=== PATIENT | female | born 1970 | race Hispanic/Latino ===

== ENCOUNTER 2025-06-21 18:03 | Emergency (ER) | payer BC, OTHER ==
[~2025-06-21] VITALS: Ht 170.2 cm; Wt 68.0 kg
[~2025-06-21 18:03] MED LIST: ESTR2TAB25 PO; GLIP-300 PO; LISI2.5T13 PO; METF-444 PO
[2025-06-21 18:06] VITALS: TEMP 98.1
[2025-06-21 18:58] LABS: IMMATURE GRANULOCYTE ABSOLUTE 0.14 K/uL (0-1); NUCLEATED RED BLOOD CELLS 0.0 % (0.0-0.19); PLATELET COUNT (AUTO) 310 K/uL (130-400); RED BLOOD CELL COUNT(AUTO) 5.19 MIL/uL (4.00-5.50); RED CELL DISTRIBUTION WIDTH 12.3 % (11.0-15.5); WHITE BLOOD COUNT (AUTO) 10.9 K/uL (4.8-10.8)
[2025-06-21 19:16] LABS: CREATININE 0.5 mg/dL (0.5-1.0); GLOMERULAR FILTR. RATE CALC 112 mL/min (>90); SODIUM SERUM 127 mmol/L (136-145); UREA NITROGEN, BLOOD 16 mg/dL (7-18)
[2025-06-21 19:19] LABS: GLUCOSE,RANDOM 441 mg/dL (70-105)
--- NOTE | 2025-06-21 19:20 | ERN ---
ED Note History of Present Illness Stated Complaint: CHEST PAIN Chief Complaint: Chest Pain Time Seen by MD: 18:06 Time Seen by Midlevel: 18:10 Dictation: 54-year-old female coming in with complaints of chest pain, patient states she has been has a on the left lower aspect radiating to the left back pain. Patient states he feels like a cramp along her upper abdomen. Denies any nausea, vomiting diarrhea today. Allergies: Coded Allergies: No Known Allergies (Unverified Allergy, Unknown, 04/21/17) Home Meds Reported Medications Glipizide (Glipizide ER) 5 Mg Tab.er.24, 5 MG PO DAILYDINNER 04/21/17 Metformin HCl (Metformin HCl) 500 Mg Tablet, 500 MG PO BIDAC 04/21/17 Lisinopril (Lisinopril) 2.5 Mg Tablet, 2.5 MG PO DAILY 04/21/17 Estradiol (Estradiol) 2 Mg Tablet, 2 MG PO DAILY 04/21/17 Past Medical History Past Medical History: Diabetes-Type II Surgical History: Appendectomy, Hysterectomy, Other Surgical History Other: ANKLE SX Review of System Dictation Constitutional: Negative for fever,chills, and weight loss Eyes: Negative for injury, pain,redness, and discharge ENT: Negative for injury,pain or swelling Cardiovascular: Complaining of chest pain Respiratory: Negative for shortness of breath, cough, and wheezing, Abdomen/GI: Negative for abdominal pain, nausea, vomiting, diarrhea, and constipation Back: Negative for injury and pain : Negative for injury, bleeding and discharge MS/Extremity: Negative for injury and deformity Skin: Negative for rash, and discoloration Neuro: Negative for headache, weakness, numbness, tingling, and seizure Psych: Negative for suicide ideation, homicidal ideation, and hallucinations Review of Systems: was completed Initial Vital Sign VS Vital Signs Date Time Temp Pulse Resp B/P (MAP) Pulse Ox O2 Delivery O2 Flow Rate FiO2 06/21/25 18:06 98.1 97 18 149/81 98 Room Air 06/21/25 21:15 0 21 Physical Exam Dictation General: awake, alert, NAD Head/Face: Normocephalic, atraumatic Eyes: PERRL, EOMI, vision at baseline ENT: oral cavity clear, TMs clear, no signs of infection Neck: Trachea midline, supple, no nuchal rigidity Cardiovascular: RRR, normal S1/S2, No MRGs, no JVD Respiratory: CTAB, no respiratory distress, No rales or wheezes Abdomen: Soft, non-tender, non-distended, normal bowel sounds, no guarding or rebound. Skin: Warm, dry, normal turgor, no rash MS/Extremity: Pulses equal, no cyanosis, neurovascular intact, FROM Neuro: COAx4, GCS 15, strength 5/5, CN 2-12 intact, normal cerebellar exam, normal gait, Psych: Normal behavior, mood, and affect normal Results (Laboratory/Radiology) Laboratory/Radiology Laboratory Tests Test 06/21/25 18:50 06/21/25 19:30 06/21/25 19:48 06/21/25 21:13 White Blood Count 10.9 K/uL (4.8-10.8) H Red Blood Count 5.19 MIL/uL (4.00-5.50) Hemoglobin 15.9 g/dL (12.0-16.0) Hematocrit 42.9 % (36-48) Mean Corpuscular Volume 82.7 fL (79-99) Mean Corpuscular Hemoglobin 30.6 pg (27.0-33.0) Mean Corpuscular Hemoglobin Concent 37.1 g/dL (32.0-36.0) H Red Cell Distribution Width 12.3 % (11.0-15.5) Platelet Count 310 K/uL (130-400) Mean Platelet Volume 10.4 fL (7.5-10.5) Immature Granulocyte % (Auto) 1.3 % (0-1) H Neutrophils (%) (Auto) 46.8 % (40.0-77.0) Lymphocytes (%) (Auto) 43.2 % (21.0-51.0) Monocytes (%) (Auto) 6.2 % (3.0-13.0) Eosinophils (%) (Auto) 1.3 % (0.0-8.0) Basophils (%) (Auto) 1.2 % (0.0-5.0) Neutrophils # (Auto) 5.1 K/uL (1.8-7.7) Lymphocytes # (Auto) 4.7 K/uL (1.0-4.8) Monocytes # (Auto) 0.7 K/uL (0.1-1.0) Eosinophils # (Auto) 0.14 K/uL (0.00-0.70) Basophils # (Auto) 0.13 K/uL (0.00-0.20) Absolute Immature Granulocyte (auto 0.14 K/uL (0-1) Nucleated Red Blood Cells 0.0 % (0.0-0.19) Red Blood Cell Morphology See comments Sodium Level 127 mmol/L (136-145) L Potassium Level 4.0 mmol/L (3.5-5.1) Chloride Level 95 mmol/L (101-111) L Carbon Dioxide Level 9 mmol/L (21-32) *L Blood Urea Nitrogen 16 mg/dL (7-18) Creatinine 0.5 mg/dL (0.5-1.0) Glomerular Filtration Rate Calc 112 mL/min (>90) Random Glucose 441 mg/dL (70-105) *H Total Calcium 6.9 mg/dL (8.5-10.1) L Total Bilirubin 0.8 mg/dL (0.2-1.0) Direct Bilirubin < 0.1 mg/dL (0.0-0.3) Aspartate Amino Transf (AST/SGOT) 31 U/L (10-37) Alanine Aminotransferase (ALT/SGPT) 25 U/L (12-78) Alkaline Phosphatase 276 U/L (50-136) H Troponin I High Sensitivity 5 ng/L (4-50) Total Protein 7.6 g/dL (6.0-8.3) Albumin 3.6 g/dL (3.5-5.0) Lipase 31 U/L (16-77) Whole Blood Ketones Quantitative 0.3 mmol/L (0.0-0.6) Blood Gas Specimen Type Arterial Arterial Blood pH 7.393 (7.350-7.450) Arterial Blood Partial Pressure CO2 36 mmHg (32-45) Arterial Blood Partial Pressure O2 83.4 mmHg (83.0-108.0) Arterial Blood HCO3 21.3 mmol/L (21.0-28.0) Arterial Blood Oxygen Saturation 96.3 % (94.0-98.0) Arterial Blood Base Excess -2.9 mmol/L (-2.0-3.0) L Blood Gas Temperature 37.0 CELSIUS (35.5-37.0) Blood Gas Vent Mode RA (ROOM AIR) FiO2 21.0 % Blood Gas Specimen Comment LR RN ROBERTO Urine Color COLORLESS (YELLOW) Urine Appearance CLEAR (CLEAR) Urine pH 5.5 (5.0-8.0) Urine Specific Lulu 1.042 (1.001-1.031) Urine Protein NEGATIVE mg/dL (NEGATIVE) Urine Glucose (UA) >=1000 mg/dL (NEGATIVE) H Urine Ketones 10 mg/dL (NEGATIVE) H Urine Occult Blood NEGATIVE (NEGATIVE) Urine Nitrate NEGATIVE (NEGATIVE) Urine Bilirubin NEGATIVE mg/dL (NEGATIVE) Urine Urobilinogen 0.2 mg/dL (0.2-1.0) Urine Leukocyte Esterase NEGATIVE Rubens/uL Urine RBC 0-1 /HPF (0-1) Urine WBC 0-1 /HPF (0-1) Urine Squamous Epithelial Cells RARE /HPF (0-2) Urine Bacteria None /HPF (None Seen) Test 06/21/25 21:40 06/21/25 21:59 Whole Blood Glucose 247 MG/DL (70-110) H Sodium Level 131 mmol/L (136-145) L Potassium Level 3.8 mmol/L (3.5-5.1) Chloride Level 100 mmol/L (101-111) L Carbon Dioxide Level 21 mmol/L (21-32) Blood Urea Nitrogen 14 mg/dL (7-18) Creatinine 0.3 mg/dL (0.5-1.0) L Glomerular Filtration Rate Calc 140 mL/min (>90) Random Glucose 323 mg/dL (70-105) H Total Calcium 7.7 mg/dL (8.5-10.1) L Labs Reviewed?: Yes EKG Comment: EKGs done at 1806. Sinus rhythm at a rate of 94. No STEMI interpreted by ER MD ED Course ED Course Orders Procedure Category Date Status Time Cbc With Differential LAB 06/21/25 Complete 18:31 Basic Metabolic Panel LAB 06/21/25 Complete 18:31 Troponin I High LAB 06/21/25 Complete Sensitivity 18:31 Chest 1vw RAD 06/21/25 Resulted 18:31 12 Lead Ekg Tracing- EKG 06/21/25 Complete Technical 18:31 Urinalysis Profile LAB 06/21/25 Complete 18:31 Lipase LAB 06/21/25 Complete 18:31 Hepatic Function Panel LAB 06/21/25 Complete 18:31 Arterial Blood Gas RT 06/21/25 Transmitted 19:20 Ketone Blood LAB 06/21/25 Complete Quantitative 19:20 0.9%Nacl 1000ml (Ns PHA 06/21/25 Complete 1000ml) 19:20 Insulin Regular, PHA 06/21/25 Complete Human 3ml (Humulin R 19:20 Arterial Blood Gas LAB 06/21/25 Complete 19:48 Osmolality Serum LAB 06/21/25 In Process 20:10 Basic Metabolic Panel LAB 06/21/25 Complete 21:14 Bedside Glucose CPOE 06/21/25 Transmitted Fingerstick 21:33 Triamcinolone Acet PHA 06/21/25 Complete 40mg/Ml 1ml (Kenalog 23:00 Orphenadrine Citrate PHA 06/21/25 Complete (Norflex) 23:00 Ketorolac PHA 06/21/25 Complete Tromethamine 30mg/Ml 23:00 Insulin Regular, PHA 06/21/25 Complete Human 3ml (Humulin R 23:30 Current Medications Medications (Trade) Dose Ordered Sig/Ina Route PRN Reason Start Time Stop Time Status Last Admin Dose Admin Insulin Human Regular (humuLIN R 100 UNIT/ML 3ML) 8 unit ONCE STAT IV 06/21/25 19:20 06/21/25 19:22 DC 06/21/25 19:56 Insulin Human Regular (humuLIN R 100 UNIT/ML 3ML) 10 unit ONCE STAT SQ 06/21/25 23:30 06/21/25 23:34 DC Ketorolac Tromethamine (toRADol) 30 mg ONCE ONCE IVP 06/21/25 23:00 06/21/25 23:01 DC 06/21/25 22:45 Orphenadrine Citrate (Norflex) 60 mg ONCE ONCE IVP 06/21/25 23:00 06/21/25 23:01 DC 06/21/25 22:45 Sodium Chloride 1,000 ml @ 2,000 mls/hr Q30M STAT IV 06/21/25 19:20 06/21/25 19:49 DC 06/21/25 19:55 Triamcinolone Acetonide (Kenalog 40) 40 mg ONCE ONCE IM 06/21/25 23:00 06/21/25 23:01 DC 06/21/25 22:45 Vital Signs Date Time Temp Pulse Resp B/P (MAP) Pulse Ox O2 Delivery O2 Flow Rate FiO2 06/21/25 21:15 98 18 146/70 97 Room Air* 0 21 06/21/25 18:06 98.1 97 18 149/81 98 Room Air Medical Decision Making MDM Patient's CBC shows an elevated WBCs 10.9 which is miniscule. Her initial chemistry panel showed a pseudo hyponatremia of 127 chloride of 95 and a surprisingly low CO2 level of nine with a random blood glucose of 441. LFTs were normal except for an elevated alk-phos at 276. Patient was given IV insulin and her blood glucose dropped down to 247. Ketones in her blood were negative. Follow-up chemistry panel showed pseudo hyponatremia of 131 potassium 38 chloride 100 and a carbon dioxide of 21. In addition to the 2 L of fluid patient was also given some Toradol and ketorolac and Norflex. Her pain has resolved. She feels much better I will give her some sliding scale insulin and discharge her. DX & DISP Disposition: Discharge Departure Impression: Primary Impression: Pseudohyponatremia Additional Impressions: Musculoskeletal pain, Hyperglycemia, Dehydration Condition: Stable Additional Instructions: You came in with a musculoskeletal pain as well as chest pain. Our laboratory studies showed you had severe hyper glycemia which we have corrected. You were also given 2 L of fluid which helped improve your chest pain so I think you were dehydrated. Your EKGs was normal. Your cardiac enzymes were also normal. I think you became dehydrated possibly from hyper glycemia causing you to urinate too much. The dehydration can increased musculoskeletal pain as well. I strongly urge you to follow up with her primary care physician to get your blood sugars under better control. Referrals: ERYN LIZAMA (PCP) RODRIGO THAKKAR CNP Jun 21, 2025 19:20 DESI FUNG MD Jun 21, 2025 23:42
[2025-06-21 19:50] LABS: ABG BASE EXCESS -2.9 mmol/L (-2.0-3.0); ABG HCO3 21.3 mmol/L (21.0-28.0); ABG OXYGEN SATURATION 96.3 % (94.0-98.0); ABG PCO2 36 mmHg (32-45); ABG PH 7.393 (7.350-7.450); PO2, ARTERIAL BG 83.4 mmHg (83.0-108.0); TEMPERATURE, CELSIUS BG 37.0 CELSIUS (35.5-37.0); VENT MODE, BG RA (ROOM AIR)
[2025-06-21] MEDS: 0.9%NACL 1000ML 1,000 ML IV STA (19:55)
--- NOTE | 2025-06-21 20:01 | HMCIMG ---
EXAM: CR Chest, 1 View. CLINICAL HISTORY: CP COMPARISON: None provided. FINDINGS: LUNGS: There is no mass, infiltrate, or acute pulmonary abnormality. PLEURAL SPACES: No evidence of pleural effusion or pneumothorax. MEDIASTINUM: Cardiac size and mediastinal contours within normal limits. BONES: No acute osseous abnormality. IMPRESSION: No acute cardiopulmonary pathology is evident. /[place]
[2025-06-21 20:10] LABS: TOTAL PROTEIN, SERUM 7.6 g/dL (6.0-8.3)
[2025-06-21 20:17] LABS: ASPARTATE AMINOTRANSFERASE 31 U/L (10-37)
[2025-06-21 21:15] VITALS: BP 146/70; PULSE 98; RESP 18; O2SAT 97
[2025-06-21 21:20] LABS: APPEARANCE,URINE CLEAR (CLEAR); GLUCOSE, URINE (UA) >=1000 mg/dL (NEGATIVE); LEUKOCYTE ESTERASE ,URINE NEGATIVE Leu/uL (NEGATIVE); NITRATE,URINE NEGATIVE (NEGATIVE); OCCULT BLOOD,URINE NEGATIVE (NEGATIVE)
[2025-06-21 21:22] LABS: ADD UA MICROSCOPIC YES; SQUAMOUS EPITHELIAL CELL,UR RARE /HPF (0-2)
--- NOTE | 2025-06-21 21:47 | EKG ---
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
[2025-06-21 22:17] LABS: GLOMERULAR FILTR. RATE CALC 140.0 mL/min (>90); GLUCOSE,RANDOM 323.0 mg/dL (70-105); SODIUM SERUM 131.0 mmol/L (136-145); UREA NITROGEN, BLOOD 14.0 mg/dL (7-18)
[2025-06-21] MEDS: ORPHENADRINE 60MG/2ML IVP ONE (22:45)
[2025-06-21] MEDS: TRIAMCINOLONE ACETONIDE 40 MG/ML 1ML VIAL IM ONE (22:45)
[2025-06-21 23:13] LABS: CREATININE 0.3 mg/dL (0.5-1.0)
== END 2025-06-21 23:54 | disposition home or self-care (01) ==
LOC: EDH 18:03
DX: E11.65 Type 2 diabetes mellitus with hyperglycemia (principal); E86.0 Dehydration; R07.89 Other chest pain; R10.10 Upper abdominal pain, unspecified; Z90.710 Acquired absence of both cervix and uterus; Z90.49 Acquired absence of other specified parts of digestive tract; Z79.899 Other long term (current) drug therapy; Z79.84 Long term (current) use of oral hypoglycemic drugs; Z79.818 Long term (current) use of other agents affecting estrogen receptors and estrogen levels
CPT/HCPCS: 99285; 96374; 96375; 71045; 80076; 84484; 80048 ×2; 82803; 83690; 85025; 82948; 83930; 82010; 81001; 36415; 96372 ×2; 93005; 36600; J1815 ×2; J1885; J7030; J3301; J2360